=== PATIENT | female | born 1985 | race African-American/Black ===

== ENCOUNTER 2016-09-01 14:41 | Emergency (ER) | payer SELFPAY ==
[~2016-09-01] VITALS: Ht 162.6 cm; Wt 71.0 kg
[~2016-09-01 14:41] MED LIST: BACTDS PO; CEPH-443 PO; FLUC150T17 PO; IBUP-1542 PO; IBUP800T25 PO; METR70GE15 VAG
[2016-09-01 15:36] VITALS: Ht 162.6 cm; Wt 71.0 kg
== END 2016-09-01 17:35 | disposition left against medical advice (07) ==
LOC: FTE 14:41
DX: Z53.21 Procedure and treatment not carried out due to patient leaving prior to being seen by health care provider (principal)